=== PATIENT | male | born 1985 | race Caucasian/White ===

== ENCOUNTER 2017-06-27 10:39 | Emergency (ER) | payer MEDICAID ==
[2017-06-27 10:44] VITALS: RESP 16; TEMP 98.6
[2017-06-27] MEDS ORDERED: LIDOCAINE 5% 1 EA PATCH TD ONE (11:04)
[2017-06-27] MEDS ORDERED: KETOROLAC 30 MG/1 ML SDV IM ONE (11:05)
[2017-06-27] MEDS ORDERED: DIAZEPAM 10 MG/2 ML SYR IM ONE (11:05)
--- NOTE | 2017-06-27 11:47 | EDPHY ---
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 Right hand dominant. He reports several times per week he experiences posterior neck and lower back pain described as sharp as well as aching with radiation down his left arm as well as down his left leg. He has received x-rays outpatient by his primary care provider within the last 1-3 months. He notes that he was referred to Neurosurgery and given a lumbar epidural steroid injection at either L4-L5 with transient relief. He has also been referred recently to Pain Management at [facility] and his appointment is soon. He is here to here today as his Percocet is not working. Denies any acute exacerbation of his pain from baseline. Modifying Factors: Percocet no relief admits that he is out of it Comment: ROS: Eyes: No blurred vision Respiratory: No shortness of breath, no cough Cardiovascular: No chest pain Gastrointestinal: No nausea, no vomiting no diarrhea Genitourinary: No dysuria Extremities: No myalgias Neurologic: No weakness, no numbness Skin: No rashes Hematologic: No bruising, no bleeding MEDICAL/SURGICAL HISTORY: Generally healthy. Denies any surgical history. Social History: In a relationship. Employed. Smoking Status: Current every day smoker Physical Exam: CONSTITUTIONAL: Extremely well-appearing adult black male, awake and alert, no obvious distress HEENT: Atraumatic and normocephalic, PERRL, EOMI. Tympanic membranes clear. oropharynx clear, no exudate and moist pink mucosa. Airway patent. NECK: Supple, full range of motion, mild reproducible tenderness over his left trapezius; no torticollis. No lymphadenopathy. No meningismus. Cardiovascular: Normal S1/S2, regular rate, regular rhythm, without murmur rub or gallop. PULMONARY/CHEST: Symmetrical and nontender. Clear to auscultation bilaterally Good air movement. No accessory muscle usage. ABDOMEN: Soft, nondistended, nontender, no rebound, no guarding, no peritoneal signs, no masses or organomegaly. No CVAT. EXTREMITIES: 2/2 pulses, no deformities, no clubbing, no cyanosis or edema. Left hip shows no pain with flexion internal rotation or external rotation. BACK: Mild left paraspinous muscle reproducible tenderness, no paraspinous spasm, deep tendon reflexes 2/2, mild pain with left straight leg raise, no pain with right straight leg raise. No midline deformities/tenderness. Able to walk on heels and toes. NEUROLOGICAL: no focal neuro deficits. GCS 15. Ambulatory without deficit. SKIN: Warm and dry, no erythema. no rash. Good capillary refill. Constitutional: Initial Vital Signs Temperature (C) 37 C 06/27/17 10:39 Heart Rate 67 06/27/17 10:39 Respiratory Rate 16 06/27/17 10:39 Blood Pressure 127/67 H 06/27/17 10:39 O2 Sat (%) 98 06/27/17 10:39 O2 Delivery Mode Room Air Allergies/Adverse Reactions: No Known Allergies Allergy (Unverified 06/27/17 10:44) Home Medications: Medication Instructions Recorded Metaxalone [Skelaxin 800 mg (*)] 800 mg PO TID PRN #12 tab 06/27/17 methylPREDNISolone [Medrol Dose 1 each PO AD #0 ea 06/27/17 Christopher] oxyCODONE/APAP 5/325 [Percocet 1 tab PO 06/27/17 5/325 (*)] traMADol [Ultram 50 mg (*)] 50 mg PO 06/27/17 Medical Decision Making ED Course/Re-evaluation: Cervical x-ray, lumbar sacral x-ray, IM medication, topical medication Offered IM Valium and IM Toradol as well as Lidoderm patch No signs of neurovascular compromise, cauda equina syndrome, acute fracture, saddle anesthesia Cervical x-ray my read shows hardware in place; degenerative changes noted Lumbosacral spine my read shows no significant degenerative changes, no significant stenosis Advised patient the ER will not prescribe chronic pain medications. Advised patient to follow up with primary care provider, neurosurgery, and pain clinic as already scheduled Differential Diagnosis: ED differential diagnosis includes but is not limited to degenerative disc disease, spinal stenosis, disc herniation, spinal hematoma, chronic pain. - Data Points Medications Given: Discontinued Medications Diazepam (Valium Injection) 5 mg IM EDNOW ONE Stop: 06/27/17 11:06 Last Admin: 06/27/17 11:17 Dose: 5 mg Ketorolac Tromethamine (Toradol) 60 mg IM EDNOW ONE Stop: 06/27/17 11:06 Last Admin: 06/27/17 11:16 Dose: 60 mg Lidocaine (Lidoderm 5%) 1 ea TD EDNOW ONE Stop: 06/27/17 11:05 Last Admin: 06/27/17 11:17 Dose: 1 ea Departure - Departure Disposition: Home, Routine, Self-Care Clinical Impression: Acute exacerbation of chronic low back pain, Cervical muscle pain Condition: Good Instructions: Chronic Back Pain (ED), Neck Pain (ED) Additional Instructions: Keep follow-up appointment with pain management clinic at [facility]. Referrals: Radha Huynh, PAC [Primary Care Provider] - 1 day without fail (Needs Percocet refill) Prescriptions: Metaxalone [Skelaxin 800 mg (*)] 800 mg PO TID PRN #12 tab PRN Reason: Spasms methylPREDNISolone [Medrol Dose Christopher] 1 each PO AD #0 ea
[2017-06-27 12:23] VITALS: BP 123/88; PULSE 63; O2SAT 96
[2017-06-27] MEDS ORDERED: PATCH REMOVAL 1 EA PATCH TD SCH (21:00)
== END 2017-06-27 12:22 | disposition home or self-care (01) ==
DX: M54.5 Low back pain (principal); G89.29 Other chronic pain; M54.2 Cervicalgia; F17.200 Nicotine dependence, unspecified, uncomplicated
CPT/HCPCS: J1885

== ENCOUNTER 2017-07-12 14:01 | Emergency (ER) | payer MEDICAID ==
[2017-07-12 14:12] VITALS: O2SAT 98
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
[2017-07-12 18:55] VITALS: BP 132/74; PULSE 76; RESP 16; TEMP 99.3
== END 2017-07-12 18:55 | disposition home or self-care (01) ==
DX: M54.12 Radiculopathy, cervical region (principal); M54.16 Radiculopathy, lumbar region; F17.200 Nicotine dependence, unspecified, uncomplicated

== ENCOUNTER 2017-11-23 14:34 | Emergency (ER) | payer OTHER, MEDICAID ==
[2017-11-23 14:42] VITALS: TEMP 98.1
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
[2017-11-23] MEDS ORDERED: IBUPROFEN 800 MG TAB PO ONE (15:29)
[2017-11-23 16:36] VITALS: BP 124/78; PULSE 61; RESP 16; O2SAT 96
== END 2017-11-23 16:35 | disposition home or self-care (01) ==
DX: S16.1XXA Strain of muscle, fascia and tendon at neck level, initial encounter (principal); M54.12 Radiculopathy, cervical region; Z87.891 Personal history of nicotine dependence; V49.49XA Driver injured in collision with other motor vehicles in traffic accident, initial encounter; Y92.410 Unspecified street and highway as the place of occurrence of the external cause; Y99.8 Other external cause status; Y93.89 Activity, other specified

== ENCOUNTER 2017-11-25 07:08 | Emergency (ER) | payer MEDICAID, OTHER ==
[2017-11-25 07:17] VITALS: PULSE 55
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
[2017-11-25 07:47] LABS: PLATELET COUNT 205 10^3/uL (150-400)
[2017-11-25] MEDS ORDERED: IOPAMIDOL (ISOVUE-300) 100 ML BTL ONE (09:16)
[2017-11-25 10:13] VITALS: BP 117/66; RESP 16; TEMP 98.2; O2SAT 97
== END 2017-11-25 10:12 | disposition home or self-care (01) ==
DX: R10.13 Epigastric pain (principal); Z87.891 Personal history of nicotine dependence
CPT/HCPCS: Q9967

== ENCOUNTER 2018-12-28 13:51 | Emergency (ER) | payer MEDICAID ==
[2018-12-28 13:59] VITALS: BP 123/80
[2018-12-28] MEDS ORDERED: KETOROLAC 30 MG/1 ML SDV IM ONE (15:10)
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
== END 2018-12-28 15:36 | disposition home or self-care (01) ==
DX: M54.2 Cervicalgia (principal); G89.29 Other chronic pain; Z98.1 Arthrodesis status
CPT/HCPCS: J1885

== ENCOUNTER 2019-02-16 10:02 | Inpatient (IN) | payer MEDICAID ==
[2019-02-16] MEDS ORDERED: LR 1,000 ML IV ONE (10:17)
[2019-02-16] MEDS ORDERED: CHLORHEXIDINE GLUC HIBICLENS 118 ML BTL TP ONE (10:41)
[2019-02-16] MEDS ORDERED: THROMBIN (BOVINE) 5,000 UNIT VIAL TP ONE ×2 (10:42→13:01)
[2019-02-16] MEDS ORDERED: BUPIVACAINE/EPI 0.25% 30 ML SDV ONE (10:42)
[2019-02-16] MEDS ORDERED: BACITRACIN 50,000 UNITS/10 ML SYR IRR ONE ×2 (10:43→13:01)
[2019-02-16] MEDS ORDERED: SURGIFLO MATRIX KIT WITH THROMBIN 8 ML TP ONE (10:43)
[2019-02-16] MEDS ORDERED: ACETAMINOPHEN 500 MG TAB PO ONE (11:00)
[2019-02-16] MEDS ORDERED: ceFAZolin 2 GM/DEXTROSE 100 ML IV ONE (11:00)
[2019-02-16] MEDS ORDERED: GABAPENTIN 300 MG CAP PO ONE (11:00)
--- NOTE | 2019-02-16 11:01 | PDHPUP ---
History & Physical Update H&P update statement: This history and physical update is based on an assessment of the patient which was completed after admission or registration (within 24 hours), but prior to the surgery/procedure. H&P update: H&P reviewed & patient examined, no change in patient's condition since H&P completed
[2019-02-16 11:11] LABS: INR 1.04 (0.83-1.16); PROTIME(PATIENT) 13.2 SEC (12.0-15.0)
[2019-02-16 11:12] LABS: PLATELET COUNT 266 10^3/uL (150-400)
[2019-02-16] MEDS ORDERED: MIDAZOLAM 2 MG/2 ML VIAL IVP ONE (11:16)
--- NOTE | 2019-02-16 11:19 | PDANEPAE ---
ANE History of Present Illness ACD and F Hardware removal C5 to c 7 ANE Past Medical History - Cardiovascular History Hx Hypertension: No Hx Arrhythmias: No Hx Chest Pain: No Hx Coronary Artery / Peripheral Vascular Disease: No Hx CHF / Valvular Disease: No Hx Palpitations: No - Pulmonary History Hx COPD: No Hx Asthma/Reactive Airway Disease: No Hx Recent Upper Respiratory Infection: No Hx Oxygen in Use at Home: No Hx Sleep Apnea: No Sleep Apnea Screening Result - Last Documented: Negative - Neurologic History Hx Cerebrovascular Accident: No Hx Seizures: No Hx Dementia: No Neurologic History Comment: previous cervical fusion - Endocrine History Hx Diabetes: No - Renal History Hx Renal Disorders: No - Liver History Hx Hepatic Disorders: No - Neurological & Psychiatric Hx Hx Neurological and Psychiatric Disorders: Yes Neurological / Psychiatric History Comment: depression - Cancer History Hx Cancer: No - Congenital Disorder History Hx Congenital Disorders: No - GI History Hx Gastrointestinal Disorders: No - Other Health History Other Health History: none - Chronic Pain History Chronic Pain: Yes (generalized pain) - Surgical History Prior Surgeries: previous cervical fusion 2006 ANE Review of Systems Review of systems is: negative Review of Systems: - Exercise capacity METS (RN): 4 METS ANE Patient History - Allergies Allergies/Adverse Reactions: No Known Allergies Allergy (Verified 02/15/19 12:29) - Home Medications Home Medications: Sertraline HCl [Zoloft 100mg (*)] 100 mg PO HS 02/14/19 [Last Taken 02/15/19] - NPO status NPO Status: no food or drink >8 hours NPO Since - Liquids (Date): 02/16/19 NPO Since - Liquids (Time): 00:00 NPO Since - Solids (Date): 02/16/19 NPO Since - Solids (Time): 00:00 - Anes Hx Anes Hx: no prior problems, post operative nausea - Smoking Hx Smoking Status: Heavy smoker Marijuana use: Yes - Family Anes Hx Family Hx Anesthesia Complications: none ANE Labs/Vital Signs - Labs Result Diagrams: 02/16/19 10:40 - Vital Signs Blood Pressure: 117/74 Heart Rate: 58 Respiratory Rate: 18 O2 Sat (%): 97 Height: 180.34 cm Weight: 68.039 kg ANE Physical Exam - Airway Neck exam: FROM Mallampati Score: Class 1 Mouth exam: normal dental/mouth exam, poor dentition - Pulmonary Pulmonary: no respiratory distress, no rales or rhonchi - Cardiovascular Cardiovascular: regular rate and rhythym, no murmur, rub, or gallop - ASA Status ASA Status: II ANE Anesthesia Plan Anesthesia Plan: general endotracheal anesthesia
[2019-02-16] MEDS ORDERED: MIDAZOLAM 2 MG/2 ML VIAL ONE (11:21)
[2019-02-16] MEDS ORDERED: fentaNYL 250 MCG/5 ML INJ ONE ×3 (11:30→13:43)
[2019-02-16] MEDS ORDERED: PROPOFOL/EMULSION 500 MG/50 ML BOTTLE IV ONE ×4 (11:30→15:20)
[2019-02-16] MEDS ORDERED: GLYCOPYRROLATE 0.2 MG/1 ML VIAL ONE (11:31)
[2019-02-16] MEDS ORDERED: ROCURONIUM 50 MG/5 ML VIAL ONE (11:31)
[2019-02-16] MEDS ORDERED: PETROLAT,WHT/MIN OIL/SOD CHL 3.5 GM OPHT.OINT ONE (11:31)
[2019-02-16] MEDS ORDERED: fentaNYL 100 MCG/2 ML INJ ONE ×2 (15:21)
[2019-02-16] MEDS ORDERED: DIAZEPAM 10 MG/2 ML SYR IVP PRN (16:58)
[2019-02-16] MEDS ORDERED: ONDANSETRON 4 MG/2 ML VIAL IVP PRN ×2 (16:58→17:47)
[2019-02-16] MEDS ORDERED: PROMETHAZINE HCL 25 MG/ML INJ IVP PRN (16:58)
[2019-02-16] MEDS ORDERED: fentaNYL 100 MCG/2 ML INJ IVP PRN (16:58)
[2019-02-16] MEDS ORDERED: NALOXONE HCL 0.4 MG/ML INJ IVP PRN ×2 (16:58→17:02)
[2019-02-16] MEDS ORDERED: HYDROmorphONE/DILAUDID 1 MG/ML INJ IVP PRN ×2 (16:58→17:47)
[2019-02-16] MEDS ORDERED: HYDROmorphONE/DILAUDID 1 MG/ML INJ ONE (17:15)
--- NOTE | 2019-02-16 17:26 | POSTOPPROG ---
Post Op Note Date of Operation: 02/16/19 Surgeon: Goyo Duenas Exterminator: None Anesthesiologist: Rosa Madsen Anesthesia: GET(General Endotracheal), Local (Specify) Pre-op Diagnosis: Cervical stenosis C5-7 with radiculopathies; prior ACDF C4-5 Post-op Diagnosis: Same Indication: Radicular pain Procedure: Removal anterior hardware C4-5; ACDF C5-6 and C6-7 Findings: Adequate decompression achieved; appropriate hardware placement Inf/Abcess present in the surg proc area at time of surgery?: No EBL: 50-100 Complications: None Bowel Protocol: N/A Clean Closure Performed: N/A Drains: Jay Spear (Subfascial) Specimen(s): None SOAP Progress Note Assessment/Plan: Assessment: Plan: 02/16/19 17:34 Ronald is doing well s/p BETH C4-5 and ACDFs C5-7. No complications apparent. - Admit to [facility] with q4 hourly VS, neuro checks, and CMS - ROSALINA to bulb suction - ADAT - Activity ad saurabh with C-collar when upright - Upright C-spine X-rays when able - Pain management - Postop prophylactic IV Ancef x 24 hours - PT/OT/TELEPHONE LINEMAN eval and tx Subjective: I saw Ronald in the PACU. He is not having any pain at the moment. Objective: Vital Signs Temp Pulse Resp BP Pulse Ox 36.3 C 58 L 14 121/73 H 99 02/16/19 16:50 02/16/19 16:50 02/16/19 17:26 02/16/19 17:26 02/16/19 17:26 Laboratory Results 02/16/19 10:40 02/15/19 02/16/19 02/17/19 05:59 05:59 05:59 Intake Total 1500 Output Total 810 Balance 690 PT 13.2 SEC (12.0-15.0) 02/16/19 10:40 INR 1.04 (0.83-1.16) 02/16/19 10:40 Asleep but arousable, drowsy PERRL, conjugate gaze, face symmetric, hearing grossly intact, no dysarthria CORDOVA with full symmetric strength SILT throughout C-collar on neck ROSALINA with sanguinous output Incision c/d/i
[2019-02-16] MEDS ORDERED: POLYETHYLENE GLYCOL 3350 17 GM PKT PO PRN (17:47)
[2019-02-16] MEDS ORDERED: LACTULOSE 20 GM/30 ML UDCUP PO PRN (17:47)
[2019-02-16] MEDS ORDERED: BISACODYL 10 MG SUPP PR PRN (17:47)
[2019-02-16] MEDS ORDERED: MAGNESIUM HYDROXIDE 30 ML UDCUP PO PRN (17:47)
[2019-02-16] MEDS ORDERED: ONDANSETRON DISINTEGRATING 4 MG TAB PO PRN (17:47)
[2019-02-16] MEDS ORDERED: diphenhydrAMINE 25 MG CAP PO PRN (17:47)
[2019-02-16] MEDS ORDERED: NS 1,000 ML IV SCH (18:00)
--- NOTE | 2019-02-16 19:08 | PDMN ---
Medical Necessity Medical necessity: [facility] IP only surgery; cpt 25211 Removal Instrumentation C4/ 5 & 49814 Cervical Fusion C5/7 ACDF
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
[2019-02-16] MEDS: GABAPENTIN 300 MG CAP PO SCH (20:43)
[2019-02-16] MEDS: SENNOSIDES/DOCUSATE SODIUM TAB PO SCH (20:43)
[2019-02-16] MEDS: ACETAMINOPHEN 500 MG TAB PO SCH (20:44)
[2019-02-16] MEDS: oxyCODONE IR 5 MG TAB PO PRN ×2 (20:45→21:46)
[2019-02-16] MEDS: ceFAZolin 2 GM/DEXTROSE 100 ML IV SCH (20:46)
[2019-02-16] MEDS: FAMOTIDINE 20 MG TAB PO SCH (20:47)
[2019-02-16] MEDS ORDERED: SERTRALINE HCL 100 MG TAB PO SCH (21:00)
[2019-02-16] MEDS: CYCLOBENZAPRINE 10 MG TAB PO PRN (21:46)
[2019-02-17] MEDS: oxyCODONE IR 5 MG TAB PO PRN ×3 (02:47→16:06)
[2019-02-17] MEDS: ceFAZolin 2 GM/DEXTROSE 100 ML IV SCH (03:00)
[2019-02-17] MEDS: ACETAMINOPHEN 500 MG TAB PO SCH ×2 (05:02→14:00)
[2019-02-17] MEDS: CYCLOBENZAPRINE 10 MG TAB PO PRN (05:03)
[2019-02-17 05:11] LABS: PLATELET COUNT 245 10^3/uL (150-400)
--- NOTE | 2019-02-17 06:41 | NEUSURGPN ---
Date of Surgery: 02/16/19 Post Op Day: 1 Assessment/Plan: 33M s/p Removal anterior hardware C4-5; ACDF C5-6 and C6-7. - Pain control - ccollar at all times - jpx1 to full suction - 40 out yesterday - remove before DC - post op xrays pending later today - DVT ppx: DARCI's, SCD's Lovenox POD#1 - dispo - home later today vs tomorrow dw Dr. Duenas Subjective: doing well, neck pain controlled. swallow OK, still has pain in his thumbs. Objective: vss aaox3 pearla, eomi cnii-xii grossly intact MAEx4, 5/5= SILT incision dressed, CDI JPx1, 40mL out total - Physician Discussed Patient with Dr.: Other (yadiel) Neurosurgery Physical Exam - Vitals, I&O, Labs I and O 02/16/19 02/17/19 02/18/19 05:59 05:59 05:59 Intake Total 2535 Output Total 2240 Balance 295 Weight 68.039 kg 68.039 kg Intake: Oral (ml) 585 IV Intake (ml) 1750 IV Infused (ml) 200 Ns 1,000 ml @ 50 mls/hr 0 IV CONT LUCIE Rx#: [id number] ceFAZolin 2 GM/DEXTROSE 200 100 ml @ 200 mls/hr IV Q8H LUCIE Rx#:[id number] Output: Urine (ml) 2150 Catheter 750 Urinal 1400 Estimated Blood Loss (ml) 50 ROSALINA Drain Output (ml) 40 #1 Left Anterior Neck 40 Jay Spear Other: Intake Quantity Yes Sufficient Vital Signs Temp Pulse Resp BP Pulse Ox 36.5 C 55 L 16 132/84 H 95 02/17/19 03:02 02/17/19 03:02 02/17/19 03:02 02/17/19 03:02 02/17/19 03:02 Laboratory Results 02/17/19 04:32 02/17/19 04:32 ICD10 Worksheet Patient Problems: Problems Problem Status Onset Spinal stenosis, cervical region Acute - ICD10 Problem Qualifiers (1) Spinal stenosis, cervical region
[2019-02-17] MEDS: SENNOSIDES/DOCUSATE SODIUM TAB PO SCH (09:38)
[2019-02-17] MEDS: FAMOTIDINE 20 MG TAB PO SCH (09:39)
[2019-02-17] MEDS: GABAPENTIN 300 MG CAP PO SCH ×2 (11:19→17:32)
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
[2019-02-17 16:03] VITALS: BP 112/83
--- NOTE | 2019-02-19 11:45 | POSTANESTH ---
Post Anesthetic Evaluation Cardiovascular Status: Normal, Stable Respiratory Status: Normal, Stable Level of Consciousness/Mental Status: Can Participate in Eval Pain Control: Adequate, Prn Tx Ordered Nausea/Vomiting Control: Adequate, Prn Tx Ordered Complications Possibly Related to Anesthesia: None Noted (Pt dced home POD 1 .. No anesthesia problems)
== END 2019-02-17 18:41 | disposition home or self-care (01) | DRG 321 ==
LOC: F3N 10:02
PROVIDERS: ADMIT Neurological Surgery; ATTEND Neurological Surgery
PROC: 01N10ZZ Release Cervical Nerve, Open Approach (ICD-10-PCS; principal; 2019-02-16 11:30)
PROC: 0PP304Z Removal of Internal Fixation Device from Cervical Vertebra, Open Approach (ICD-10-PCS; principal; 2019-02-16 11:30)
PROC: 0RG20A0 Fusion of 2 or more Cervical Vertebral Joints with Interbody Fusion Device, Anterior Approach, Anterior Column, Open Approach (ICD-10-PCS; principal; 2019-02-16 11:30)
PROC: 0RT30ZZ Resection of Cervical Vertebral Disc, Open Approach (ICD-10-PCS; principal; 2019-02-16 11:30)
DX: M50.122 Cervical disc disorder at C5-C6 level with radiculopathy (principal); M50.123 Cervical disc disorder at C6-C7 level with radiculopathy; M47.22 Other spondylosis with radiculopathy, cervical region; M48.02 Spinal stenosis, cervical region; F17.210 Nicotine dependence, cigarettes, uncomplicated; Z98.1 Arthrodesis status
CPT/HCPCS: 92610-GN; 97161-GP; 97165-GO; C1713; J0690; J1170; J2250; J2704; J3010